=== PATIENT | male | born 1975 | race Caucasian/White ===

== ENCOUNTER 2023-07-23 16:13 | Emergency (ER) | payer OTHER, SELFPAY ==
--- NOTE | 2023-07-23 16:20 | ED.WOUNDLAC ---
HPI - Wound/Laceration General Chief Complaint: Wound/Laceration Stated Complaint: FINGER LACERATION Time Seen by Provider: 07/23/23 16:30 Source: patient and RN notes reviewed Mode of arrival: ambulatory Limitations: no limitations History of Present Illness HPI narrative: 48-year-old male presents concern for laceration to the 2nd digit of the left hand. Reports he cut it on a piece of galvanized steel at home prior to arrival. He reports he has not had a tetanus shot in many years. He denies decreased sensation, strength, range of motion to the hand or digit. Related Data Home Medications Medication Instructions Recorded Confirmed No Home Medications 07/23/23 07/23/23 Allergies Allergy/AdvReac Type Severity Reaction Status Date / Time acetaminophen [From Percocet] Allergy Hives Verified 07/23/23 16:22 oxycodone [From Percocet] Allergy Hives Verified 07/23/23 16:22 Review of Systems Review of Systems: CONSTITUTIONAL: Denies malaise, chills, sweats, or fever. SKIN: Reports laceration to the 2nd digit of the left hand MUSCULOSKELETAL: Denies muscle skeletal pain NEUROLOGIC: Denies numbness, weakness All systems reviewed & are unremarkable except as noted in HPI and below PMFSH Comments At time of signature, agree with nursing past medical, surgical, social and family history. There is no relevant family history pertinent to the presenting complaint Exam Narrative: GENERAL: Well-appearing, well-nourished, and in no acute distress. HEAD: Normocephalic EYES: PERRLA, conjunctivae clear NECK: Supple. CHEST: Speaks in full sentences. No respiratory distress. HEART: Regular rate and rhythm. Normal and equal peripheral pulses. EXTREMITIES: Left hand and digits of hand have normal strength and sensation. Range of motion normal. No clubbing, cyanosis, or edema noted. No tenderness. Normal sensation of each side of finger. No scissoring. Normal thumb opposition. Good capillary refill and radial pulse. Distal capillary refill less than 3 seconds. SKIN: Warn, dry, intact, pink. No rash. 1.5 cm laceration into the dermis noted to the lateral side of the 2nd digit of the left hand NEURO: Alert and oriented x3. PSYCH: Normal mood and affect Course Course Emergency Course: Patient is aware of diagnosis, understands and agrees to treatment plan. Anticipatory guidance given. Patient agrees to follow-up as directed and is aware of reasons to seek care at the emergency department. Portions of this record may have been created with voice recognition software Level of Care: Express Care Visit Vital Signs Vital signs: Vital Signs Temperature 98.8 F 07/23/23 16:23 Pulse Rate 86 07/23/23 16:23 Respiratory Rate 16 07/23/23 16:23 Blood Pressure 152/96 H 07/23/23 16:23 Pulse Oximetry 97 07/23/23 16:23 Temperature 98.8 F 07/23/23 16:23 Pulse Rate 86 07/23/23 16:23 Respiratory Rate 16 07/23/23 16:23 Blood Pressure 152/96 H 07/23/23 16:23 Pulse Oximetry 97 07/23/23 16:23 Reviewed. Procedures Laceration Laceration 1: Date: 07/23/23 Time: 16:42 Site: hand Side (If applicable): left Size (cm): 1.5 Description: linear Depth: simple, single layer ====== Skin Level ====== Skin layer closed with: dermabond ====== Subcutaneous Layer ====== ====== Muscle Layer ====== ====== Tendon Layer ====== MDM - Wound/Laceration MDM Narrative Medical decision making narrative: Wound explored for foreign body and copious irrigation provided with no evidence of FB. There was no evidence of tendon or nerve lacerations. Anticipatory guidance was provided. Tetanus prophylaxis was given Differential Diagnosis Differential diagnosis: Likely laceration, abrasion and avulsion of skin Critical Care Time Critical Care Time Critical Care Time: No Discharge Plan Discharge Clinical Impression: Laceration Patie
[2023-07-23 16:23] VITALS: BP 152/96; PULSE 86; RESP 16; TEMP 37.1; O2SAT 97
[2023-07-23] MEDS: TETANUS,DIPHTHERIA,AC PERTUSSIS ADULT (0.5 ML) BOOSTRIX IM (16:49)
== END 2023-07-23 17:14 | disposition home or self-care (01) ==
PROVIDERS: Emergency Provider Nurse Practitioner
DX: S61.211A Laceration without foreign body of left index finger without damage to nail, initial encounter (principal); W45.8XXA Other foreign body or object entering through skin, initial encounter; Z23 Encounter for immunization
CPT/HCPCS: 12011; 90471; 90715; 99212; G0463